=== PATIENT | male | born 2000 | race Caucasian/White ===

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

== ENCOUNTER 2021-10-11 19:29 | Emergency (ER) | payer SELFPAY ==
[~2021-10-11] VITALS: Ht 162.6 cm; Wt 53.5 kg
[~2021-10-11 19:29] MED LIST changes: +ULTRAM50 MG PO
== END 2021-10-11 20:28 | disposition home or self-care (01) ==
LOC: ED 19:29
DX: U07.1 COVID-19 (principal)
CPT/HCPCS: 99283